=== PATIENT | male | born 1945 | race Caucasian/White ===

== ENCOUNTER 2017-02-18 08:06 | Day surgery (SDC) | payer MEDICARE, BC ==
[~2017-02-18 08:06] MED LIST: Bupivacaine 0.5% 50 ML MDV ONE; Lidocaine 1% with EPINEPHrine 1:100,000 50 ML MDV ONE
[2017-02-18] MEDS ORDERED: Sodium Chloride 0.9% 1,000 ML IV SCH (08:30)
[2017-02-18] MEDS ORDERED: ceFAZolin 2 GM in Premix Bag 1 BAG IV ONE (08:34)
[2017-02-18] MEDS ORDERED: Midazolam 1 MG/ML 2 ML SDV ONE (09:15)
[2017-02-18] MEDS ORDERED: Propofol 200 MG/20 ML SDV ONE ×2 (09:15→10:15)
[2017-02-18] MEDS ORDERED: fentaNYL 100 MCG/2 ML SDV ONE (09:15)
[2017-02-18] MEDS ORDERED: Bacitracin Oint 1 GM U/D Packet ONE (10:37)
[2017-02-18 11:58] VITALS: BP 134/93
[2017-02-18] MEDS ORDERED: Acetaminophen/HYDROcodone 325-5 MG Tab PO ONE (12:10)
--- NOTE | 2017-02-21 08:15 | OR ---
DATE OF PROCEDURE: 02/18/2017 PROCEDURES PERFORMED: 1. Evacuation of hematoma, right hip trauma approximately 15 cm. 2. Culture of hematoma fluid. COMPLICATIONS: None. SOL[employer]ER [employer]LECT[employer]: None. ANESTHESIA: MAC/local. INDICATIONS: This is a pleasant 71-year-old male, who underwent a traumatic event and developed mass on his right hip. This is related to a trauma approximately 13 weeks ago. We discussed risks, benefits, alternatives, and limitations, including, but not limited to infection, bleeding, and chronic wounds along with chronic pain. The patient understands these risks and wished to proceed. PROCEDURE IN DETAIL: The patient was placed in right lateral decubitus position. The hip mass was readily identified after being prepped and draped. Anesthetized with Lidocaine. A single tiffany was created in the skin. About 1 L of dark hematetic fluid was able to be extracted. This was cultured. This was consistent with hematoma. Once this was removed, a 7 flat Naman-Linda drain was placed and was sutured in the place. The patient tolerated the procedure well. Noel Porras MD /[id number]
== END 2017-02-18 12:30 | disposition home or self-care (01) ==
LOC: JP.SDS 08:06
PROVIDERS: ATTEND Surgery
DX: S70.01XA Contusion of right hip, initial encounter (principal); I10 Essential (primary) hypertension; E78.00 Pure hypercholesterolemia, unspecified; Z79.899 Other long term (current) drug therapy; X58.XXXA Exposure to other specified factors, initial encounter
CPT/HCPCS: 10140; 87070; 87075; 87205; A9270; J0690; J2250; J2704; J3010; J7040

== ENCOUNTER 2017-03-11 07:26 | Day surgery (SDC) | payer MEDICARE, BC, OTHER ==
[2017-03-11] MEDS ORDERED: Sodium Chloride 0.9% 1,000 ML IV SCH (08:00)
[2017-03-11] MEDS ORDERED: ceFAZolin 2 GM in Sodium Chloride 0.9% 50 ML IV ONE (08:30)
[2017-03-11] MEDS ORDERED: Propofol 200 MG/20 ML SDV ONE (08:37)
[2017-03-11] MEDS ORDERED: fentaNYL 100 MCG/2 ML SDV ONE (08:37)
[2017-03-11] MEDS ORDERED: Midazolam 1 MG/ML 2 ML SDV ONE (08:37)
[2017-03-11] MEDS ORDERED: Ciprofloxacin in D5W 400 MG in Premix Bag 1 BAG IV ONE ×2 (08:40)
[2017-03-11 11:06] VITALS: BP 125/83
--- NOTE | 2017-04-11 09:28 | OR ---
DATE OF PROCEDURE: 03/11/2017 PROCEDURE: Hematoma evacuation, right hip (15018). COMPLICATIONS: None. PROGRESSIVE CARE UNIT REGISTERED NURSE: None. ANESTHESIA: MAC/local. INDICATIONS: A 71-year-old male with a traumatic injury of his right hip. RISKS: Risks, benefits, alternatives, limitations including, but not limited to infection, bleeding, and injury to local structures were explained to the patient, and he wished to proceed. PROCEDURE IN DETAIL: The patient was placed in supine position. Using 11 megahertz ultrasound probe, the hematoma fluid collection was not readily identified. This was anesthetized with lidocaine. A 15 blade was used to make an incision. A large amount of fluid was able to be aspirated in a 10 flat Naman-Linda drain. The drain was then placed in this after thorough irrigation, along with cultures. Dressings were applied. The patient tolerated the procedure well. Noel Porras MD /[id number]
== END 2017-03-11 11:32 | disposition home or self-care (01) ==
LOC: JP.SDS 07:26
PROVIDERS: ATTEND Surgery
DX: S70.01XD Contusion of right hip, subsequent encounter (principal); I10 Essential (primary) hypertension; E78.00 Pure hypercholesterolemia, unspecified; Z98.890 Other specified postprocedural states; Z88.1 Allergy status to other antibiotic agents; Z87.891 Personal history of nicotine dependence; X58.XXXA Exposure to other specified factors, initial encounter
CPT/HCPCS: 27301; 76998; 87070; 87075; 87205; J0744; J2250; J2704; J3010; J7040

== ENCOUNTER 2022-05-17 05:48 | Day surgery (SDC) | payer MEDICARE ==
[~2022-05-17 05:48] MED LIST changes: +Acetaminophen 500 MG Tab PO ONE; -Bupivacaine 0.5% 50 ML MDV ONE; -Lidocaine 1% with EPINEPHrine 1:100,000 50 ML MDV ONE
[2022-05-17] MEDS ORDERED: Dextrose 5%-Lactated Ringers 1,000 ML IV SCH (06:00)
[2022-05-17] MEDS ORDERED: Bupivacaine 0.5%/EPINEPHrine 1:200,000 50 ML MDV ONE (06:56)
[2022-05-17] MEDS ORDERED: Meropenem 500 MG SDV ONE (06:56)
[2022-05-17] MEDS ORDERED: fentaNYL 250 MCG/5 ML SDV ONE (07:09)
[2022-05-17] MEDS ORDERED: Neostigmine Methylsulfate 1 MG/ML 5 ML Syringe ONE (07:10)
[2022-05-17] MEDS ORDERED: Rocuronium 50 MG/5 ML Vial ONE (07:10)
[2022-05-17] MEDS ORDERED: Dexamethasone 4 MG/ML SDV ONE (07:10)
[2022-05-17] MEDS ORDERED: Glycopyrrolate 0.2 MG/ML 5 ML MDV ONE (07:10)
[2022-05-17] MEDS ORDERED: Succinylcholine 200 MG/10 ML MDV ONE (07:10)
[2022-05-17] MEDS ORDERED: Propofol 200 MG/20 ML SDV ONE (07:10)
[2022-05-17] MEDS ORDERED: Ondansetron 4 MG/2 ML SDV ONE (07:10)
[2022-05-17] MEDS ORDERED: ceFAZolin 2 GM in Premix Bag 1 BAG IV ONE (07:15)
[2022-05-17] MEDS ORDERED: Ketamine 500 MG/5 ML MDV IV SCH (07:30)
[2022-05-17] MEDS ORDERED: Ketamine 24 MG in Sodium Chloride 0.9% 19.76 ML IV SCH (07:30)
[2022-05-17] MEDS ORDERED: ceFAZolin 2 GM in Sodium Chloride 0.9% 50 ML IV ONE (07:45)
[2022-05-17] MEDS ORDERED: Lactated Ringers 1,000 ML ONE (08:58)
[2022-05-17] MEDS ORDERED: Linezolid 600 MG/300 ML Premix Bag IRR ONE (09:00)
[2022-05-17] MEDS ORDERED: Ketorolac 30 MG/ML SDV ONE (09:38)
[2022-05-17] MEDS ORDERED: hydrOXYzine HCL 100 MG/2 ML SDV IM ONE (09:51)
[2022-05-17] MEDS ORDERED: fentaNYL 50 MCG/ML SDV IVPUSH ONE (09:51)
[2022-05-17] MEDS ORDERED: oxyCODONE 5 MG Tab PO PRN (10:51)
[2022-05-17 12:09] VITALS: BP 130/88; PULSE 79
== END 2022-05-17 12:45 | disposition home or self-care (01) ==
LOC: JP.SDS 05:48
PROVIDERS: ATTEND Surgery
PROC: 0WUF0JZ Supplement Abdominal Wall with Synthetic Substitute, Open Approach (ICD-10-PCS; principal; 2022-05-17)
PROC: 0WJF4ZZ Inspection of Abdominal Wall, Percutaneous Endoscopic Approach (ICD-10-PCS; 2022-05-17)
DX: K43.0 Incisional hernia with obstruction, without gangrene (principal); K42.0 Umbilical hernia with obstruction, without gangrene; K66.0 Peritoneal adhesions (postprocedural) (postinfection); E78.5 Hyperlipidemia, unspecified; I10 Essential (primary) hypertension; E03.9 Hypothyroidism, unspecified; Z79.82 Long term (current) use of aspirin; Z87.891 Personal history of nicotine dependence; Z98.890 Other specified postprocedural states; Z88.1 Allergy status to other antibiotic agents; Z90.49 Acquired absence of other specified parts of digestive tract; Z79.899 Other long term (current) drug therapy; Z79.890 Hormone replacement therapy
CPT/HCPCS: 49653; 49655; A9270; C1781; J0171; J0330; J0690; J1100; J1885; J2020; J2185; J2405; J2704; J2710; J2795; J3010; J3410; J3490; J7120; J7121

== ENCOUNTER 2023-10-05 19:29 | Emergency (ER) | payer MEDICARE ==
[2023-10-05 20:04] VITALS: BP 159/97; PULSE 75
[2023-10-05 20:28] LABS: BASOPHILS ABSOLUTE AUTO 0.05 K/uL (0.00-0.10); BASOPHILS PERCENT AUTO 0.8 % (0.1-1.3); EOSINOPHILS ABSOLUTE AUTO 0.11 K/uL (0.00-0.40); EOSINOPHILS PERCENT AUTO 1.7 % (0.0-5.4); HEMATOCRIT 41.3 % (38.4-49.7); HEMOGLOBIN 14.1 g/dL (12.9-16.9); IMMATURE GRAN ABSOLUTE AUTO 0.04 K/uL (0.00-0.23); IMMATURE GRAN PERCENT AUTO 0.6 % (0.0-0.7); LYMPHOCYTES ABSOLUTE AUTO 1.29 K/uL (0.8-3.3); LYMPHOCYTES PERCENT AUTO 19.4 % (11.4-47.7); MEAN CORPUSCULAR HEMOGLOBIN 32.1 pg (31.6-35.5); MEAN CORPUSCULAR HGB CONC 34.1 g/dL (31.6-35.5); MEAN CORPUSCULAR VOLUME 94.1 fL (81.4-99.0); MONOCYTES ABSOLUTE AUTO 0.76 K/uL (0.20-0.90); MONOCYTES PERCENT AUTO 11.4 % (3.3-12.6); NEUTROPHILS ABSOLUTE AUTO 4.39 K/uL (1.0-7.6); NEUTROPHILS PERCENT AUTO 66.1 % (40.0-78.1); PLATELET COUNT,PLT 171 K/uL (130-375); RED BLOOD CELL COUNT 4.39 M/uL (4.14-5.76); WHITE BLOOD CELL COUNT,WBC 6.6 K/uL (3.2-11.0)
[2023-10-05 20:43] LABS: CALCIUM 9.2 mg/dL (8.5-10.1); CREATININE 1.2 mg/dL (0.8-1.3); EST CRCL DRUG DOSING (CG) 60.89 mL/min
[2023-10-05 20:56] LABS: BILIRUBIN,URINE SMALL (NEGATIVE); GLUCOSE,URINE NEGATIVE (NEGATIVE); KETONES,URINE NEGATIVE (NEGATIVE); NITRITE,URINE NEGATIVE (NEGATIVE); OCCULT BLOOD,URINE LARGE (NEGATIVE); PH,URINE 6.5 (5.0-8.0); PROTEIN,URINE >=300 mg/dL (NEGATIVE); UROBILINOGEN,URINE 0.2 EU/dL (0.2-1.0)
[2023-10-05 20:58] LABS: AMORPHOUS SEDIMENT,URINE NOT SEEN; APPEARANCE,URINE TURBID (CLEAR); BACTERIA,URINE FEW; COLOR,URINE RED (YELLOW); EPITHELIAL CELLS,URINE NOT SEEN; LEUKOCYTE ESTERASE,URINE NEGATIVE (NEGATIVE); MUCUS,URINE NOT SEEN; RBC,URINE PACKED (0-5); WBC,URINE 0-5 (0-5)
== END 2023-10-05 21:53 | disposition home or self-care (01) ==
LOC: JP.ED 19:29
DX: R31.9 Hematuria, unspecified (principal); I10 Essential (primary) hypertension; E78.00 Pure hypercholesterolemia, unspecified; E03.9 Hypothyroidism, unspecified; Z88.0 Allergy status to penicillin; Z79.899 Other long term (current) drug therapy
CPT/HCPCS: 36415; 80048; 81001; 85025; 99283

== ENCOUNTER 2024-05-16 06:52 | Day surgery (SDC) | payer MEDICARE ==
[2024-05-16] MEDS ORDERED: ceFAZolin 2 GM in Sodium Chloride 0.9% 100 ML IV ONE (07:30)
[2024-05-16 07:33] LABS: HEMATOCRIT 40.7 % (38.4-49.7); HEMOGLOBIN 14.2 g/dL (12.9-16.9); MEAN CORPUSCULAR HEMOGLOBIN 33.3 pg (31.6-35.5); MEAN CORPUSCULAR HGB CONC 34.9 g/dL (31.6-35.5); MEAN CORPUSCULAR VOLUME 95.3 fL (81.4-99.0); RED BLOOD CELL COUNT 4.27 M/uL (4.14-5.76); WHITE BLOOD CELL COUNT,WBC 6.2 K/uL (3.2-11.0)
[2024-05-16] MEDS: Lactated Ringers 1,000 ML IV SCH (07:39)
[2024-05-16] MEDS: Nozin Nasal Sanitizer NASBOTH ONE (07:42)
[2024-05-16 07:54] LABS: A/G RATIO 1.2 (1.2-2.2); ALANINE AMINOTRANSFERASE,ALT 47 U/L (12-78); ALBUMIN 4.1 g/dL (3.4-5.0); ALKALINE PHOSPHATASE 66 U/L (46-116); ANION GAP 15.5 mmol/L (5.0-14.0); ASPARTATE AMNIOTRANSFERASE,AST 41 U/L (15-37); BILIRUBIN TOTAL 1.6 mg/dL (0.2-1.0); BLOOD UREA NITROGEN,BUN 21 mg/dL (7-18); CALCIUM 9.4 mg/dL (8.5-10.1); CARBON DIOXIDE,CO2 26 mmol/L (21-32); CHLORIDE,CL 100 mmol/L (100-108); EST CRCL DRUG DOSING (CG) 72.04 mL/min; ESTIMATED GFR 78 mL/min (>60); GLUCOSE RANDOM 107 mg/dL (74-106); POTASSIUM,K 3.5 mmol/L (3.6-5.2); PROTEIN TOTAL,TP 7.4 g/dL (6.4-8.2); SODIUM,NA 138 mmol/L (140-148)
[2024-05-16] MEDS ORDERED: Midazolam 1 MG/ML 2 ML SDV ONE (09:07)
[2024-05-16] MEDS ORDERED: fentaNYL 100 MCG/2 ML SDV ONE (09:07)
[2024-05-16] MEDS ORDERED: Propofol 200 MG/20 ML SDV ONE ×4 (09:07→10:43)
[2024-05-16] MEDS: ceFAZolin 2 GM in Premix Bag 1 BAG IV ONE (09:07)
[2024-05-16] MEDS ORDERED: METRONIDAZOLE TOP PRN (09:12)
[2024-05-16] MEDS ORDERED: Magnesium Hydroxide 400 MG/5 ML Susp 30 ML Cup PO PRN (09:16)
[2024-05-16] MEDS ORDERED: oxyCODONE 5 MG Tab PO PRN (09:16)
[2024-05-16] MEDS ORDERED: Docusate Sodium 100 MG Cap PO PRN (09:16)
[2024-05-16] MEDS ORDERED: Ketorolac 30 MG/ML SDV IVPUSH PRN (09:16)
[2024-05-16] MEDS ORDERED: ceFAZolin 2 GM in Sodium Chloride 0.9% 100 ML IV SCH (09:30)
[2024-05-16] MEDS ORDERED: Glycopyrrolate 0.2 MG/ML 5 ML MDV ONE (09:34)
[2024-05-16] MEDS: Tranexamic Acid 980 MG in Sodium Chloride 0.9% 50 ML IV ONE (09:47)
[2024-05-16] MEDS: Bupivacaine 0.5% 50 ML MDV ONE (09:59)
[2024-05-16] MEDS: oxyCODONE 5 MG Tab PO PRN (13:26)
[2024-05-16] MEDS: Morphine 2 MG/ML SYRINGE IVPUSH PRN (14:02)
[2024-05-16] MEDS: Ketorolac 15 MG/ML SDV IVPUSH PRN (15:07)
[2024-05-16] MEDS: Sodium Chloride 0.9% 1,000 ML IV SCH (15:44)
[2024-05-16] MEDS: Acetaminophen 325 MG Tab PO SCH (15:44)
[2024-05-16] MEDS: ceFAZolin 2 GM in Water For Injection, Sterile 20 ML IV SCH (17:05)
[2024-05-16] MEDS: Ondansetron 4 MG/2 ML SDV IVPUSH PRN (17:05)
[2024-05-16] MEDS: CREON 24000 UNIT PO SCH (17:08)
[2024-05-16] MEDS ORDERED: CETIRIZINE HCL 10 MG PO SCH (21:00)
[2024-05-16] MEDS ORDERED: Non-Formulary Medication 1 Each (Melatonin [Melatonin] 10 MG Tablet) PO SCH (21:00)
[2024-05-16] MEDS: Nozin Nasal Sanitizer NASBOTH SCH (21:21)
[2024-05-16] MEDS: diphenhydrAMINE 25 MG Cap PO SCH (21:27)
[2024-05-16] MEDS: Melatonin 3 MG Tab PO SCH (21:28)
[2024-05-16] MEDS: Losartan 25 MG **PTOM PO SCH (21:28)
[2024-05-16] MEDS: Tamsulosin 0.4 MG Cap.ER **PTOM PO SCH (21:30)
[2024-05-16] MEDS: Cetirizine 10 MG Tab PO SCH (21:31)
[2024-05-17] MEDS: Levothyroxine 50 MCG **PTOM PO SCH (08:05)
[2024-05-17] MEDS ORDERED: Non-Formulary Medication 1 Each (Magnesium Oxide [Magnesium] 500 MG Capsule) PO SCH (09:00)
[2024-05-17] MEDS ORDERED: PYRIDOXINE HCL 100 MG PO SCH (09:00)
[2024-05-17] MEDS ORDERED: CYANOCOBALAMIN 500 MCG PO SCH (09:00)
[2024-05-17] MEDS: CINNAMON BARK 500 MG PO SCH (09:41)
[2024-05-17] MEDS: ASCORBIC ACID PO SCH (09:42)
[2024-05-17] MEDS: CRANBERRY PO SCH (09:42)
[2024-05-17] MEDS: OMEGA PO SCH (09:43)
[2024-05-17] MEDS: EPA PO SCH (09:43)
[2024-05-17] MEDS: DHA PO SCH (09:43)
[2024-05-17] MEDS: FATTY ACIDS PO SCH (09:43)
[2024-05-17] MEDS: GLUCOSAMINE PO SCH (09:44)
[2024-05-17] MEDS: [UNRECOGNIZED DRUG - OTHER] PO SCH (09:44)
[2024-05-17] MEDS: D3 PO SCH (09:44)
[2024-05-17] MEDS: Vitamin B6-pyridOXINE 50 MG Tab PO SCH (09:45)
[2024-05-17] MEDS: Aspirin 325 MG Tab.EC PO SCH (09:45)
[2024-05-17] MEDS: Famotidine 20 MG Tab PO SCH (09:45)
[2024-05-17] MEDS: Magnesium Oxide 400 MG Tab PO SCH (09:45)
[2024-05-17] MEDS: Cyanocobalamin (Vitamin B12) 1,000 MCG Tab PO SCH (09:46)
[2024-05-17] MEDS: Fluticasone NASAL Spray 16 GM Bottle NASBOTH SCH (09:46)
[2024-05-17] MEDS: SIMVASTATIN 40 MG PO SCH (09:47)
[2024-05-17] MEDS: Finasteride 5 MG **PTOM PO SCH (09:53)
[2024-05-17 17:47] VITALS: BP 122/63; PULSE 73
== END 2024-05-17 18:37 | disposition home or self-care (01) ==
LOC: JP.SDS 06:52 → JP.MS 09:16 → JP.SDS 05-17 18:37
PROVIDERS: ATTEND Specialist
DX: M17.11 Unilateral primary osteoarthritis, right knee (principal); I10 Essential (primary) hypertension; E78.5 Hyperlipidemia, unspecified
CPT/HCPCS: 01402; 27447; 36415; 73560; 80053; 85027; 97110; 97116; 97161; 97165; 97530; 97535; A9270; C1713; C1776; J0665; J0690; J1596; J1885; J2250; J2270; J2405; J2704; J3010; J3490; J7030; J7120